=== PATIENT | female | born 2005 | race African-American/Black ===

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

== ENCOUNTER 2024-11-10 10:05 | Inpatient (IN) | payer MEDICAID, SELFPAY ==
--- NOTE | 2024-11-01 17:08 | HP.PCM_ITS ---
History and Physical Date of Admission: 11/10/24 HPI: The patient is a 19 year old female presenting for pre-operative visit. She is scheduled for and tubal, for isidoro twins on 11/10/24. Procedure discussed along with risks, benefits and complications. Other alternatives discussed for management. Consent form signed? Yes. ? ? PAST MEDICAL HISTORY PAST MEDICAL HISTORYDiagnosisDate?Anemia during in third trimester (HCC)04/22/2022?Herpes simplex virus (HSV) infection??Thalassemia alpha carrier??See carrier screening July 2024 ? ? PAST SURGICAL HISTORY PAST SURGICAL HISTORYProcedureLateralityDate? SECTION HX? CURRENT MEDICATIONS Current Outpatient MedicationsMedicationSigDispenseRefill?ferrous sulfate (IRON) 325 mg (65 mg iron) tabletTake 325 mg by mouth.???cetirizine HCl (ZYRTEC ORAL)Take by mouth.???PNV no.95/ferrous fum/folic ac ( ORAL)Take by mouth.???No current facility-administered medications for this visit. ? ? ALLERGIES: Patient has no known allergies. ? PERSONAL HISTORY: SOCIAL HISTORY Social History?Tobacco Use?Smoking status:Former??Types:Cigarettes?Smokeless tobacco:NeverVaping Use?Vaping status:Never UsedSubstance Use Topics?Alcohol use:Not Currently??Comment: rarely?Drug use:Not Currently??Types:Marijuana?? Comment: quit 2021 ? FAMILY HISTORY: FAMILY HISTORY FAMILY HISTORY ProblemRelationAge of Onset?Heart AttackMother??Bipolar disorderMother??DepressionMother??AsthmaMother??No Known ProblemsFather??No Known ProblemsSister??No Known ProblemsSister??AsthmaBrother??No Known ProblemsBrother??No Known ProblemsBrother??No Known ProblemsBrother??No Known ProblemsBrother??No Known ProblemsBrother??No Known ProblemsBrother??Heart AttackMaternal Grandmother??HypertensionMaternal Grandmother??Breast CancerMaternal Grandmother??DiabetesMaternal Grandmother??No Known ProblemsMaternal Grandfather??No Known ProblemsPaternal Grandmother??Alcohol abusePaternal Grandfather??No Known ProblemsSon? ? ? REVIEW OF SYMPTOMS: GENERAL: denies fevers or chills ENDOCRINOLOGY: has not been on steroids Cardiology : denies palpitations or chest pain Respiratory: denies SOB or cough Hematology: denies history of prolonged bleeding or easy bruising or VTE Allergy: Denies history of personal or family history of allergy to anesthesia ? PHYSICAL EXAMINATION: ? VITALS: Last menstrual period 02/09/2024, currently . ? GENERAL: The patient is well nourished, well hydrated in no acute distress. , The patient is oriented to time, place, and person. NECK: Supple. No lynphadenopathy, normal thyroid, no thyromegaly. LUNGS: Clear to auscultation bilaterally. no wheezes, rhonchi or rales HEART: Regular rate and rhythm, Normal heart sounds, and No murmurs or gallops ? IMPRESSION: Estimated Date of Delivery: 11/24/24 previous c/s, desires sterilization, previous c/s ? PLAN: The risks/benefits/alternatives and personal involved for the planned c- section and tubal were reviewed with the patient. Her questions were answered to her satisfaction and she desires to proceed. Consent was signed. I reviewed with her postop instructions and expectations. ? ? I have reviewed and updated past medical and surgical history, medications and allergies Assessment & Plan Assessment/Plan (1) Dichorionic diamniotic twin gestation: QUALIFIERS: Trimester: third trimester Qualified Code(s): O30.043 - Twin , dichorionic/diamniotic, third trimester (2) Previous delivery affecting : (3) Sterilization:
[2024-11-10] VITALS (27 sets, daily range): BP systolic 112–156; BP diastolic 53–109; PULSE 57–91; RESP 12–20; TEMP 35.9–36.9; O2SAT 97–100; BMI 36.6
[2024-11-10] MEDS: Lactated Ringers 1,000 ML 999 ML IV (10:02)
[2024-11-10 10:30] LABS: Hematocrit 34.5 % (37-47); Hemoglobin 10.6 g/dL (12.0-15.0); Immature Granulocytes Count 0.030 X10^3/uL (0.0-0.0); Mean Corp Hgb Conc 30.7 g/dL (32-36); Mean Corpuscular Volume 81.9 fL (81-99); Mean Platelet Vol. 11.6 fl (6.2-12.0); NRBC Flagged by Analyzer 0 % (0-5); Platelet Count 194 K/mm3 (150-450); RBC Distribution Width CV 18.4 % (11.6-14.6); RBC Distribution Width SD 53.1 fl (35.1-43.9); Red Blood Count 4.21 M/mm3 (4.2-5.4); White Blood Count 7.9 K/mm3 (4.4-11.0)
[2024-11-10 11:20] LABS: Syphilis Antibodies Nonreactive (Nonreactive)
[2024-11-10] MEDS: Lactated Ringers 1,000 ML 150 ML IV (11:33)
[2024-11-10] MEDS: Cefazolin 2 GM in 0.9% Normal Saline (100mL Bag) 100 ML IV (12:28)
[2024-11-10 12:36] LABS: Barbiturate Urine NEGATIVE (< 200 ng/mL); Benzodiazepine Urine NEGATIVE (< 200 ng/mL); PCP Urine NEGATIVE (< 25 ng/mL); THC Urine NEGATIVE (< 50 ng/mL)
[2024-11-10] MEDS: TRANEXAMIC ACID 1,000 MG in 0.9% Normal Saline (100mL Bag) 100 ML 440 MG IV (12:37)
--- NOTE | 2024-11-10 13:30 | EX.PCM.OBRPT ---
Assessment & Plan (1) Sterilization: (2) Previous delivery affecting : (3) Dichorionic diamniotic twin gestation: QUALIFIERS: Trimester: third trimester Qualified Code(s): O30.043 - Twin , dichorionic/diamniotic, third trimester (4) Delivery by section: (5) 38 weeks gestation of : Maternal Data Information Final SHASHI: 11/24/24 Gestational age: 38 0/7 Operative Report (OB) Details Procedure Type: low transverse (with bilateral salpingectomy) Date of Procedure: 11/10/24 Procedure Start Time: 12:37 Procedure Stop Time: 13:24 Time of Delivery: 12:43 Pre-Operative Diagnosis: Repeat Elective and Desires elective sterilization Post-Operative Diagnosis: Same as Pre-operative diagnosis Classification: Scheduled Type of Anesthesia: Spinal Special Medications: duramorph Antibiotic Given: Ancef 2 grams IV x1 Drain: Clayton to straight drain Estimated Blood Loss: 800 Fluids Replaced: 1600 Findings Description of surgery: The patient was taken to the operating room. She was prepped and draped in the dorsal supine position with a leftward tilt. A Pfannenstiel skin incision was made approximately 2 cm above the symphysis pubis and carried through to underlying layer fascia with the scalpel. The fascia was incised incised in the midline and extended laterally with the Barbosa scissors. The fascia was dissected off the rectus muscles with blunt and sharp dissection. The rectus muscles were in the midline and the peritoneum was entered bluntly. The peritoneal incision was stretched and the bladder blade was placed. The uterine incision was made in a low transverse fashion with the scalpel and extended superiorly and inferiorly with blunt dissection. The amniotic membranes were ruptured bluntly and clear amniotic fluid returned. The infant's head was brought to the incision in the flexed position and would not engage easily and baby B's membranes Bulging through the incision. The vacuum was placed on the flexion point and vacuum created 550 mmHg. I pulled with 1 pull and no pop offs with fundal pressure and the head delivered easily. The vacuum was removed and the remainder the infant delivered with gentle traction only in less than 15 seconds.. The mouth and nares were bulb suctioned. The cord was clamped and cut as the was stimulated. Cord clamping was delayed approximately 30 seconds.. The was handed off to the waiting nursing staff. Baby breathing it was brought to the incision and the amniotic membranes were ruptured and the head was brought to the incision it would not flex and was unable to be easily delivered with fundal pressure only the vacuum was then placed in the vacuum created 550 mmHg a pulled with 2 pulls and 1 pop-off and gentle fundal pressure and the delivered on the second pool the vacuum was removed without a second pop-off and the remainder the infant was delivered with very gentle traction and less than 15 seconds without difficulty. The infant was vigorous and stimulated and mouth and nares were bulb suctioned the cord was then clamped and cut cord clamping was delayed approximately 30 seconds and the was handed off to the waiting nursing staff. The placenta was delivered with fundal massage and gentle traction in the standard fashion. The uterus was exteriorized and cleared of all clots and debris. The cervix was dilated with a ring forcep. The uterine incision was closed with #1 Vicryl in a running locked fashion. A second layer of the same suture was used in an imbricating fashion to obtain hemostasis. The incision was examined and was found to be hemostatic. Hemoblast was placed over the incision The uterus was placed back into the peritoneal cavity and hemostasis was again confirmed. The left fallopian tube was identified and followed out to the fimbriated end. The LigaSure device was used to clamp seal and transect the antimesenteric portion of the tube to the cornual insertion which was clamped transected and ligated with the LigaSure device. Hemostasis was noted. The same procedure was performed on the contralateral side and the tubes were handed off for pathology. The rectus muscles were examined and any bleeding was Bovie cauterized. The parietal peritoneum and rectus muscles were closed en bloc with an 0 Vicryl running suture. Hemoblast was placed over each layer. The rectus fascia was examined and any bleeding was Bovie cauterized and the rectus fascia was closed with 1 Vicryl suture in a running standard fashion. The subcutaneous tissue was examining and any bleeding was Bovie cauterized. The subcutaneous tissue was reapproximated with 3-0 Vicryl suture. The skin was closed in a subcuticular fashion. I performed the entire procedure with assistance. No qualified residents were available for assisting. All sponge, lap, and needle counts were correct. The patient was taken to her room for recovery in a stable condition. Surgical findings: vigorous female and male , normal tubes and ovaries Presentation: Vertex Amniotic Membrane Rupture Type: Artificial Amniotic Fluid Description: Clear Placental Delivery Description: Manual Removal Placenta Disposition: Sent to Pathology Specimen collected: Yes Description of specimen(s) removed: placenta and bilateral fallopian tubes Cord Vessel Description: 3 Vessels Cord Entanglement: None Infant A gender: Female (5 lb 10 oz) (1 minute): 8 (5 minute): 9 Delayed Cord Clamping: Yes Station Engineer dice spotter: Yes Plow Mechanic: Edda Andujar CNM Tasks completed by rn first assist: Retracting Additional wet process miller head assistant?: Yes Additional Operating Table Assembler #2: Jonathan Reyna MS4 Tasks completed by wet process miller head assistant #2: Closing and Retracting Additional wet process miller head assistant?: No Complications Complications: No Baby B Information Amniotic Membrane Rupture Type: Artificial Presentation: Vertex Operative Information Mode of Delivery: Cord Vessel Description: 3 Vessels Cord Entanglement: None B gender: Male (6lb 2 oz) (1 minute): 8 (5 minute): 9 Delayed Cord Clamping: Yes
[2024-11-10] MEDS: Oxytocin 15 Units/NS 250ml 15 UNITS/250 ML IV.SOLN 83 UNITS IV (13:40)
[2024-11-10] MEDS: Ketorolac 30 MG/ML Syringe IV ×2 (14:29→21:05)
--- NOTE | 2024-11-10 14:57 | PLAC_PTH ---
PATIENT: NUNO MELVIN LOC: WP U#:[id number] AGE/SX: 19/F ROOM: WP005 RE11/10/[address]: Dr. Janis Myrick MD : 2005 BED: 1 DIS: 11/12/2024 SPEC #: [id number] RECD: 11/10/24 15:39 STATUS: BRYAN REQ #: [id number] PAULO: 11/10/24 14:[address]: Janis Myrick DEPT: SURGICAL PATHOLOGY RECD BY: Rock Turcios ENTERED: 11/11/24 09:51 SP TYPE: PLACENTA OTHR DR: No Primary Care Phys Tissues: A - Placenta, NOS B - Fallopian tube Procedures: Surgery Specimen Level II Surgery Specimen Level V HEADER OPERATION: Repeat ceaseran section PRE-OP DIAGNOSIS: Twins TISSUE SUBMITTED: A- Placenta, B- Bilateral fallopian tubes MICROSCOPIC DIAGNOSIS A. Placenta, twins, gestation: 38 weeks, section: Dichorionic diamniotic twin placenta * Twin #1: clamped Mature third trimester placenta (365.3 grams) Three vessel umbilical cord membranes without active inflammation * Twin #2, no clamp Mature third trimester placenta (356.8 grams) with focal subchorionic fibrin <15% Three vessel umbilical cord, marginally inserted membranes without active inflammation B. Bilateral fallopian tubes, sterilization tubal ligation: * Benign fallopian tubes with no pathologic change MICROSCOPIC DESCRIPTION Slides are reviewed. GROSS DESCRIPTION A. Received in formalin labeled with the patient's name and date of is a diamniotic, dichorionic twin placenta with two separate discs and central, dividing membranes. There is a single, undesignated umbilical clamp. Clamped Placenta: Ovoid disc. Weighs 365.3 g and measures 18.8 x 12.3 x 2.9 cm. The membranes are belle-pink and translucent with focal opacity, inserting marginally. The attached, hypercoiled, trivascular and clamped umbilical cord measures 27.8 cm in length by 0.9-1.5 cm in diameter and inserts eccentrically, 4.4 cm from the disc edge. The surface is blue-ivan with arborizing vasculature and patchy subchorionic fibrin (<10%). The maternal surface is dark red-brown with a focally torn and frayed appearance and loosely adherent blood clot; the maternal surface appears near complete. Sectioning reveals dark red-maroon spongy parenchyma devoid of identifiable fibrin or hemorrhages. Sections are submitted as follows: A1: Membrane rollA2: Umbilical cordA3-A4: Placenta No Clamp Placenta: Ovoid disc. Weighs 356.8 g and measures 17.1 x 12.4 x 3.8 cm. The membranes are belle-pink and translucent with focal opacity, inserting marginally. The attached, hypercoiled, trivascular umbilical cord is devoid of a clamp, measures 25.7 cm in length by 1.0-1.5 cm in diameter and inserts marginally, <0.1 cm from the disc edge. The surface is pink-blue to ivan with arborizing vasculature and patchy subchorionic fibrin (<15%). The maternal surface is dark red-brown with a focally torn and frayed appearance, loosely adherent blood clot and fibrin (<15%); the maternal surface appears near complete. Sectioning reveals dark red-maroon spongy parenchyma with patchy fibrin. Sections are submitted as follows: A5: Membrane rollA6: Umbilical cordA7-A8: Placenta A9: Dividing membranes B. Received in formalin labeled with the patient's name and date of . Designated as bilateral fallopian tubes L suture, are no suture are 2 red-purple fimbriated fallopian tubes with orientation open) suture on the left close measuring 6.2 x 0.6-0.9 cm (left) and 9.0 x 0.5-0.8 cm. A possible, <0.1 cm paratubal cyst is identified on the left fallopian tube. Criminal Records Technician sections are submitted in 2 cassettes follows: B1: Left fallopian tubeB2: Right fallopian tube [place] 11/11/2024 CPT:14023,61215h1
--- NOTE | 2024-11-10 14:57 | PLAC_PTH ---
PATIENT: NUNO MELVIN LOC: WP U#:[id number] AGE/SX: 19/F ROOM: WP005 RE11/10/[address]: Dr. Janis Myrick MD : 2005 BED: 1 DIS: 11/12/2024 SPEC #: [id number] RECD: 11/10/24 15:39 STATUS: BRYAN REQ #: [id number] PAULO: 11/10/24 14:[address]: Janis Myrick DEPT: SURGICAL PATHOLOGY RECD BY: Rock Turcios ENTERED: 11/11/24 09:51 SP TYPE: PLACENTA OTHR DR: No Primary Care Phys Tissues: A - Placenta, NOS B - Fallopian tube Procedures: Surgery Specimen Level II Surgery Specimen Level V HEADER OPERATION: Repeat ceaseran section PRE-OP DIAGNOSIS: Twins TISSUE SUBMITTED: A- Placenta, B- Bilateral fallopian tubes MICROSCOPIC DIAGNOSIS A. Placenta, twins, gestation: 38 weeks, section: Dichorionic diamniotic twin placenta * Twin #1: clamped Mature third trimester placenta (365.3 grams) Three vessel umbilical cord membranes without active inflammation * Twin #2, no clamp Mature third trimester placenta (356.8 grams) with focal subchorionic fibrin <15% Three vessel umbilical cord, marginally inserted membranes without active inflammation B. Bilateral fallopian tubes, sterilization tubal ligation: * Benign fallopian tubes with no pathologic change MICROSCOPIC DESCRIPTION Slides are reviewed. GROSS DESCRIPTION A. Received in formalin labeled with the patient's name and date of is a diamniotic, dichorionic twin placenta with two separate discs and central, dividing membranes. There is a single, undesignated umbilical clamp. Clamped Placenta: Ovoid disc. Weighs 365.3 g and measures 18.8 x 12.3 x 2.9 cm. The membranes are belle-pink and translucent with focal opacity, inserting marginally. The attached, hypercoiled, trivascular and clamped umbilical cord measures 27.8 cm in length by 0.9-1.5 cm in diameter and inserts eccentrically, 4.4 cm from the disc edge. The surface is blue-ivan with arborizing vasculature and patchy subchorionic fibrin (<10%). The maternal surface is dark red-brown with a focally torn and frayed appearance and loosely adherent blood clot; the maternal surface appears near complete. Sectioning reveals dark red-maroon spongy parenchyma devoid of identifiable fibrin or hemorrhages. Sections are submitted as follows: A1: Membrane rollA2: Umbilical cordA3-A4: Placenta No Clamp Placenta: Ovoid disc. Weighs 356.8 g and measures 17.1 x 12.4 x 3.8 cm. The membranes are belle-pink and translucent with focal opacity, inserting marginally. The attached, hypercoiled, trivascular umbilical cord is devoid of a clamp, measures 25.7 cm in length by 1.0-1.5 cm in diameter and inserts marginally, <0.1 cm from the disc edge. The surface is pink-blue to ivan with arborizing vasculature and patchy subchorionic fibrin (<15%). The maternal surface is dark red-brown with a focally torn and frayed appearance, loosely adherent blood clot and fibrin (<15%); the maternal surface appears near complete. Sectioning reveals dark red-maroon spongy parenchyma with patchy fibrin. Sections are submitted as follows: A5: Membrane rollA6: Umbilical cordA7-A8: Placenta A9: Dividing membranes B. Received in formalin labeled with the patient's name and date of . Designated as bilateral fallopian tubes L suture, are no suture are 2 red-purple fimbriated fallopian tubes with orientation open) suture on the left close measuring 6.2 x 0.6-0.9 cm (left) and 9.0 x 0.5-0.8 cm. A possible, <0.1 cm paratubal cyst is identified on the left fallopian tube. Tick Inspector sections are submitted in 2 cassettes follows: B1: Left fallopian tubeB2: Right fallopian tube [place] 11/11/2024 CPT:58217,[id number]
[2024-11-10 15:39] LABS: Pathology Specimen OB SEE PATHOLOGY REPORT
[2024-11-10] MEDS: Lactated Ringers 1,000 ML 100 ML IV (16:39)
[2024-11-11 01:01] VITALS: RESP 16; O2SAT 99
[2024-11-11 03:23] VITALS: BP 111/59; PULSE 64; RESP 16; TEMP 36.5; O2SAT 97
[2024-11-11] MEDS: Ketorolac 30 MG/ML Syringe IV ×2 (03:25→09:42)
[2024-11-11 08:00] VITALS: BP 120/67; PULSE 77; RESP 15; TEMP 36.5; O2SAT 97
[2024-11-11 08:26] LABS: Hematocrit 31.6 % (37-47); Hemoglobin 9.8 g/dL (12.0-15.0); Mean Corp Hgb Conc 31.0 g/dL (32-36); Mean Corpuscular Volume 82.5 fL (81-99); Mean Platelet Vol. 11.3 fl (6.2-12.0); Platelet Count 172 K/mm3 (150-450); RBC Distribution Width CV 18.5 % (11.6-14.6); RBC Distribution Width SD 53.7 fl (35.1-43.9); Red Blood Count 3.83 M/mm3 (4.2-5.4); White Blood Count 12.0 K/mm3 (4.4-11.0)
--- NOTE | 2024-11-11 08:54 | PCM.PN.OB ---
Subjective Subjective Doing well. Ambulating and voiding without difficulty. Mild lochia. Breast feeding. Objective Data Objective Data Vital Signs: Vital Signs Temp Pulse Resp BP Pulse Ox O2 Del Method 97.7 F L 77 15 120/67 97 Room Air 11/11/24 08:00 11/11/24 08:00 11/11/24 08:00 11/11/24 08:00 11/11/24 08:00 11/11/24 08:00 Oxygen Delivery Method Room Air Weight: 99.79 kg Body Mass Index (BMI) 36.6 Intake & Output: Intake and Output for Last 24 Hours 11/09/24 11/10/24 11/11/24 23:59 23:59 23:59 Intake Total 2191.79 / 2191.79 Output Total 1999 1700 / 1700 Balance 191.79 / 191.79 -1700 / -1700 Lab / Micro Data 11/11/24 08:15 Labs: Laboratory Results - last 24 hr 11/10/24 10:02: WBC 7.9, RBC 4.21, Hgb 10.6 L, Hct 34.5 L, MCV 81.9, MCH 25.2 L, MCHC 30.7 L, RDW Std Deviation 53.1 H, RDW Coeff of Michael 18.4 H, Plt Count 194, MPV 11.6, Immature Gran % (Auto) 0.400, Neut % (Auto) 60.0, Lymph % (Auto) 30.4, [place] % (Auto) 7.8, Eos % (Auto) 1.1, Baso % (Auto) 0.3, Absolute Neuts (auto) 4.8, Absolute Lymphs (auto) 2.41, Nucleated RBC % 0, Syphilis Total Ab Nonreactive, Blood Type A POSITIVE, Antibody Screen NEGATIVE 11/10/24 10:20: Urine Opiates Screen NEGATIVE, U Buprenorphine Qual NEGATIVE, Ur Oxycodone Screen NEGATIVE, Urine Methadone Screen NEGATIVE, Urine Fentanyl Screen NEGATIVE, Ur Barbiturates Screen NEGATIVE, Ur Phencyclidine Scrn NEGATIVE, Ur Amphetamines Screen NEGATIVE, U Benzodiazepines Scrn NEGATIVE, Urine Cocaine Screen NEGATIVE, U Cannabinoids Screen NEGATIVE, Ur Drug Screen Comment 11/11/24 08:15: WBC 12.0 H, RBC 3.83 L, Hgb 9.8 L, Hct 31.6 L, MCV 82.5, MCH 25.6 L, MCHC 31.0 L, RDW Std Deviation 53.7 H, RDW Coeff of Michael 18.5 H, Plt Count 172, MPV 11.3 ROS Constitutional Constitutional: Denies headache(s) Cardiovascular Cardiovascular: Denies chest pain or dyspnea Gastrointestinal Gastrointestinal: Denies nausea or vomiting Genitourinary Genitourinary: Denies dysuria Physical Exam Const alert, oriented x3 and no apparent distress General Appearance: cooperative and comfortable Eyes PERRL and EOMs intact bilaterally Resp normal respiratory effort GI soft to palpation and non-tender Uterus Palpation: uterus fundus firm ( below umbilicus) Extremity normal to inspection and full ROM Neuro oriented x3 and CN's II-XII intact bilaterally Psych mental status grossly normal Assessment & Plan (1) Sterilization: (2) Previous delivery affecting : (3) Dichorionic diamniotic twin gestation: QUALIFIERS: Trimester: third trimester Qualified Code(s): O30.043 - Twin , dichorionic/diamniotic, third trimester (4) Delivery by section: PLAN: Plan Routine care
[2024-11-11] MEDS: 0.9% Saline Lock 10 ML Syringe IV (09:42)
[2024-11-11] MEDS: Senna/Docusate Sodium 1 Tablet PO (09:43)
[2024-11-11 15:00] VITALS: BP 123/78; PULSE 80; RESP 16; TEMP 36.6; O2SAT 98
[2024-11-11 20:35] VITALS: BP 127/77; PULSE 92; RESP 16; TEMP 36.6; O2SAT 97
[2024-11-12 01:18] VITALS: BP 126/69; PULSE 86; RESP 14; TEMP 36.6; O2SAT 97
--- NOTE | 2024-11-12 06:28 | PCM.PN.OB ---
Subjective Subjective Doing well. Ambulating and voiding without difficulty. Mild lochia. Breast feeding. Objective Data Objective Data Vital Signs: Vital Signs Temp Pulse Resp BP Pulse Ox O2 Del Method 97.9 F 86 14 126/69 H 97 Room Air 11/12/24 01:18 11/12/24 01:18 11/12/24 01:18 11/12/24 01:18 11/12/24 01:18 11/12/24 01:18 Oxygen Delivery Method Room Air Weight: 99.79 kg Body Mass Index (BMI) 36.6 Intake & Output: Intake and Output for Last 24 Hours 11/10/24 11/11/24 11/12/24 23:59 23:59 23:59 Intake Total 2191.79 / 2191.79 Output Total 1999 1700 / 1700 Balance 191.79 / 191.79 -1700 / -1700 Lab / Micro Data 11/11/24 08:15 Labs: Laboratory Results - last 24 hr 11/11/24 08:15: WBC 12.0 H, RBC 3.83 L, Hgb 9.8 L, Hct 31.6 L, MCV 82.5, MCH 25.6 L, MCHC 31.0 L, RDW Std Deviation 53.7 H, RDW Coeff of Michael 18.5 H, Plt Count 172, MPV 11.3 ROS Constitutional Constitutional: Denies headache(s) Cardiovascular Cardiovascular: Denies chest pain or dyspnea Gastrointestinal Gastrointestinal: Denies nausea or vomiting Genitourinary Genitourinary: Denies dysuria Physical Exam Const alert, oriented x3 and no apparent distress General Appearance: cooperative and comfortable Eyes PERRL and EOMs intact bilaterally Resp normal respiratory effort GI soft to palpation and non-tender GI Narrative: soft, moderate distention, fundus firm, appropriately tender. Abdominal bandage clean dry and intact Uterus Palpation: uterus fundus firm ( below umbilicus) Extremity normal to inspection and full ROM Neuro oriented x3 and CN's II-XII intact bilaterally Psych mental status grossly normal Assessment & Plan (1) Sterilization: (2) Previous delivery affecting : (3) Dichorionic diamniotic twin gestation: QUALIFIERS: Trimester: third trimester Qualified Code(s): O30.043 - Twin , dichorionic/diamniotic, third trimester (4) S/P : PLAN: Plan Discharge home
--- NOTE | 2024-11-12 06:29 | PCM.DC.SUM ---
Providers Date of Admission: 11/10/24 Date of Discharge: 11/12/24 Primary Care Physician: Nathalia Primary Care Phys Reason For Visit: REPEAT Diagnosis Discharge Diagnosis (1) Sterilization: Status: Acute Code(s): Z30.2 - Encounter for sterilization (2) Previous delivery affecting : Status: Acute Code(s): O34.219 - Maternal care for unspecified type scar from previous delivery (3) Dichorionic diamniotic twin gestation: Status: Acute Code(s): O30.049 - Twin , dichorionic/diamniotic, unspecified trimester Qualifiers: Trimester: third trimester Qualified Code(s): O30.043 - Twin , dichorionic/diamniotic, third trimester (4) S/P : Status: Acute Code(s): Z98.891 - History of uterine scar from previous surgery Plan Discharge home Medications at Discharge Home Medications prenat.vits,barb,vru-bnca-xpvwc 1 tab PO DAILY genital herpes 07/04/22 acetaminophen 500 mg tablet 1,000 mg (2 x 500 mg) PO Q6H #30 tabs 11/12/24 ibuprofen 600 mg tablet 600 mg PO Q6H #30 tabs 11/12/24 Hospital Course Operations section Procedures None Summary of Care Provided Minutes Spent on Discharge: 20 Hospital Course: scheduled repeat . Breast feeding. Physical Exam Const alert General Appearance: cooperative GI GI Narrative: soft, moderate distention, fundus firm, appropriately tender. Abdominal bandage clean dry and intact Weight / BMI Weight Weight: 99.79 kg Body Mass Index (BMI) 36.6 ABG / Lab / Microbiology Data 11/11/24 08:15 Laboratory: Laboratory Results - last 24 hr 11/11/24 08:15: WBC 12.0 H, RBC 3.83 L, Hgb 9.8 L, Hct 31.6 L, MCV 82.5, MCH 25.6 L, MCHC 31.0 L, RDW Std Deviation 53.7 H, RDW Coeff of Michael 18.5 H, Plt Count 172, MPV 11.3 D/C Instructions Discharge Diet: No restrictions May resume sexual activity in: 4-6 weeks Lifting Restrictions: 20 pounds Additional Activity Instructions: Nothing in the vagina for 4-6 weeks. You may return to work/school in 6 weeks. Call your doctor if your incision/area has: Continuous Slow Oozing, Sudden Increased Bleeding, Increased Pain/ Swelling, Increased Redness and Foul Smelling Discharge Call your doctor if you observe: Fever of 101 or Higher and Using more than 1 pad per hour (for 2 hours) Suture Line Care: Avoid Pulling/Pushing and Avoid Pinching/Bending Cleanse incision/area with: Keep Dressing Clean & Dry DC O2, CPAP, BIPAP Needs Home O2 Discharge instructions: No Please Follow Up With: Janis Myrick MD When: Call to make an appointment for an incision check in 1-2 [phone]. You will need a post check in 6 weeks. Meaningful Use Info Meaningful Use Meaningful Use Diagnoses (Choose all that apply): None applicable Ischemic Stroke Statin Dosing Therapy Reference: STATIN DOSE THERAPY REFERENCE: * Patients > 75 years receive moderate or high dose statin therapy. * Patients 75 years or YOUNGER should receive HIGH intensity statin dose unless contraindicated. You will be required to document reason for non-treatment if statin daily dose does not meet guidelines. HIGH DOSE STATIN THERAPY DAILY Atorvastatin > than or = to 40 mg Rosuvastatin > than or = to 20 mg Amlodipine + Atorvastatin > than or = to 2.5/40 mg Ezetimibe + Simvastatin 10/80 mg Simvastatin 80mg Discharge Plan Admission Admit Date/Time: 11/10/24 10:05 Primary Reason for Your Visit: repeat Attending Provider: Janis Myrick Primary Care Provider: Rya Physician,Nathalia Primary Discharge Orders/Prescriptions Prescriptions: New acetaminophen 500 mg Tablet 1,000 mg PO Q6H Qty: 30 0RF ibuprofen 600 mg Tablet 600 mg PO Q6H Qty: 30 0RF Continued prenat.vits,barb,upw-zula-gebzp Tablet 1 tab PO DAILY Referrals / Follow Up: Care Physician,No Primary [Primary Care Provider] - Disposition Disposition (needs filled in before D/C Order can be placed): Home, Self Care
[2024-11-12 10:35] VITALS: BP 125/82; PULSE 76; RESP 16; TEMP 36.6; O2SAT 97
[2024-11-12] MEDS: Senna/Docusate Sodium 1 Tablet PO (11:26)
--- NOTE | 2024-11-18 16:23 | NURSING ---
Follow up phone call made, phone number disconnected
--- NOTE | 2024-11-18 16:23 | NURSING ---
Follow up phone call made, phone number disconnected
--- NOTE | 2024-11-29 10:58 | CASEMGMT ---
Social Work Assessment Labor and Delivery Unit Patient Address: [address] [place] [address] [place] [address] Phone number: [phone] Date of Referral: 11/10/24 Time of Referral:? 1038 Referred By: Dr. Myrick Date of Intervention: ??11/11/24 Time of Intervention:? 1034 Reason for Referral:? parent history of etoh/ drug use Sw completed chart review and acknowledges social work consult. Sw presented to bedside and introduced self to mother of baby (LATOYA- Chastity). Father of baby (FODirk- Yogi) was asleep on couch throughout completion of assessment. History obtained from: medical records, MOB Household composition: MOB states that currently residing in the family home is LATOYA, ESPERANZA, LATOYA's older son: (2), and twins to be included in residence when ready for discharge. MOB denies any problems or concerns with housing, reporting it is safe and secure. MOB states that ESPERANZA has two children of his own: Journey (7) and Marshal (5) and they stay with them on the weekends. Patient's parent/guardian status:?MOB states that she and ESPERANZA have been together for 10 months after meeting each other through LATOYA's sister. MOB denies any problems or concerns with domestic violence or intimate partner violence. [place] twins are the first two children for parents together. Medical History: LATOYA is 19 year old Bi-racial female who is 3, para 1- now 3 following labor and delivery of twins. LATOYA received routine care during care during with [facility]. LATOYA presented to hospital and delivered twins via repeat scheduled on 11/10/24 at 38 weeks gestation. Baby A: Anni was born weighing 5lb 10oz and has apgars of 8 and 9 at one and five minutes of life, respectfully. Baby B: Yogi, was born weighing 6lb 2oz with apgars of 8 and 9 at one and five minutes of life, respectfully. MOB states that she is breast feeding and baby's will be followed by Dr. Guevara for pediatrics. ? Educational Status:?MOB stats that she attended some college and obtained her certification in medical assisting, MOB states that she thinks FODirk graduated from high school. MOB denies any problems or concerns with reading, learning or comprehension. 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 Infant Supplies:?? LATOYA states that she has obtained all necessary baby supplies, including: car seat, safe sleep space, clothes, diapers and wipes. Childcare/Caregiver(s): LATOYA states that she will be the primary caregiver to baby along with ESPERANZA when he is not working. ? Transportation:?? Both parents have their drivers license and reliable means of transportation, no barriers to transportation at this time. Programs/Agencies Involved: ?LATOYA is connected to several community resources that assist her financially: Title 20, SNAP, insurance and WIC. ?? Children Services/Legal Issues:??LATOYA denies prior involvement/ history with children services. No issues or concerns warranting referral to be made at this time. ? Behavioral Health Issues: ??Mental Health History:??MOB denies mental health history for herself, MOB states that she is not sure if ESPERANZA has a mental health history or not. ? Substance Use History:?MOB denies substance use history prior to and during . ? Family History:??MOB states that her mother has been diagnosed with BiPolar, ADD and PTSD. MOB states that her mother does have history of substance use and she is not close to her mom. Douglas discussed importance of understanding her genetic history and to always use healthy coping skills opposed to seeking comfort from drugs or alcohol, which MOB expressed understanding. ??? Drug Screens: ??No drug screens observed while completing chart review. Family/Social Stressors:? LATOYA denies any problems or concerns at this time. MOB states that when she found out that she was with twins after only knowing FOB for a very brief period of time, she was initially shocked and overwhelmed. MOB states that she and ESPERANZA are still navigating how to incorporate their two families together. Support Systems: MOB states that ESPERANZA and her sister are her two biggest supports. Depression/Shaken Baby/Safe Sleeping:? Sw educated LATYOA on signs and symptoms of baby blues and depression. MOB states that she did not experience any blues or symptoms after her son was born two years ago. MOB states that if she were to struggle during this period, her sister would be her biggest support. Sw encouraged MOB to utilize healthy and safe coping mechanisms. Sw educated MOB on shaken baby prevention and ABCs of safe sleep, MOB expressed understanding. ASSESSMENT:? MOB and her twins admitted following labor and delivery. MOB was observed sitting on bed and feeding baby while she was also welcoming of meeting with sw. MOB states that she and FOB have not been together very long, and their was a surprise, and the fact that they had twins was an even bigger surprise. MOB states that she has help and support found from FOB and her sister. MOB denies experiencing any baby blues or depression/ anxiety after the delviery of her first baby. At this time, MOB states that mentally she feels good and is happy that babies are here and are healthy. MOB was talkative and in happy mood. MOB answered questions and engaging in conversation, although did not elaborate on answers. PLAN:? No other services requested or indicated. MOB and baby to be discharged when medically ready. Parents were provided literature regarding: signs and symptoms of baby blues and mood and anxiety disorders, Help Me Grow, shaken baby prevention, ABCs of safe sleep and a list of county resources that are available for them should any needs present themselves. Rafael Aguilar, REPAIR WELDER, INSURANCE CLAIMS SPECIALIST
--- NOTE | 2024-11-29 10:58 | CASEMGMT ---
Social Work Assessment Labor and Delivery Unit Patient Address: [address] [place] [address] [place] [address] Phone number: [phone] Date of Referral: 11/10/24 Time of Referral:? 1038 Referred By: Dr. Myrick Date of Intervention: ??11/11/24 Time of Intervention:? 1034 Reason for Referral:? parent history of etoh/ drug use Sw completed chart review and acknowledges social work consult. Sw presented to bedside and introduced self to mother of baby (LATOYA- Chastity). Father of baby (FODirk- Yogi) was asleep on couch throughout completion of assessment. History obtained from: medical records, MOB Household composition: MOB states that currently residing in the family home is LATOYA, ESPERANZA, LATOYA's older son: (2), and twins to be included in residence when ready for discharge. MOB denies any problems or concerns with housing, reporting it is safe and secure. MOB states that ESPERANZA has two children of his own: Journey (7) and Marshal (5) and they stay with them on the weekends. Patient's parent/guardian status:?MOB states that she and ESPERANZA have been together for 10 months after meeting each other through LATOYA's sister. MOB denies any problems or concerns with domestic violence or intimate partner violence. [place] twins are the first two children for parents together. Medical History: LATOYA is 19 year old Bi-racial female who is 3, para 1- now 3 following labor and delivery of twins. LATOYA received routine care during care during with [facility]. LATOYA presented to hospital and delivered twins via repeat scheduled on 11/10/24 at 38 weeks gestation. Baby A: Anni was born weighing 5lb 10oz and has apgars of 8 and 9 at one and five minutes of life, respectfully. Baby B: Yogi, was born weighing 6lb 2oz with apgars of 8 and 9 at one and five minutes of life, respectfully. MOB states that she is breast feeding and baby's will be followed by Dr. Guevara for pediatrics. ? Educational Status:?MOB stats that she attended some college and obtained her certification in medical assisting, MOB states that she thinks FODirk graduated from high school. MOB denies any problems or concerns with reading, learning or comprehension. 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 Infant Supplies:?? LATOYA states that she has obtained all necessary baby supplies, including: car seat, safe sleep space, clothes, diapers and wipes. Childcare/Caregiver(s): LATOYA states that she will be the primary caregiver to baby along with ESPERANZA when he is not working. ? Transportation:?? Both parents have their drivers license and reliable means of transportation, no barriers to transportation at this time. Programs/Agencies Involved: ?LATOYA is connected to several community resources that assist her financially: Title 20, SNAP, insurance and WIC. ?? Children Services/Legal Issues:??LATOYA denies prior involvement/ history with children services. No issues or concerns warranting referral to be made at this time. ? Behavioral Health Issues: ??Mental Health History:??MOB denies mental health history for herself, MOB states that she is not sure if ESPERANZA has a mental health history or not. ? Substance Use History:?MOB denies substance use history prior to and during . ? Family History:??MOB states that her mother has been diagnosed with BiPolar, ADD and PTSD. MOB states that her mother does have history of substance use and she is not close to her mom. Douglas discussed importance of understanding her genetic history and to always use healthy coping skills opposed to seeking comfort from drugs or alcohol, which MOB expressed understanding. ??? Drug Screens: ??No drug screens observed while completing chart review. Family/Social Stressors:? LATOYA denies any problems or concerns at this time. MOB states that when she found out that she was with twins after only knowing FOB for a very brief period of time, she was initially shocked and overwhelmed. MOB states that she and ESPERANZA are still navigating how to incorporate their two families together. Support Systems: MOB states that ESPERANZA and her sister are her two biggest supports. Depression/Shaken Baby/Safe Sleeping:? Sw educated LATOYA on signs and symptoms of baby blues and depression. MOB states that she did not experience any blues or symptoms after her son was born two years ago. MOB states that if she were to struggle during this period, her sister would be her biggest support. Sw encouraged MOB to utilize healthy and safe coping mechanisms. Sw educated MOB on shaken baby prevention and ABCs of safe sleep, MOB expressed understanding. ASSESSMENT:? MOB and her twins admitted following labor and delivery. MOB was observed sitting on bed and feeding baby while she was also welcoming of meeting with sw. MOB states that she and FOB have not been together very long, and their was a surprise, and the fact that they had twins was an even bigger surprise. MOB states that she has help and support found from FOB and her sister. MOB denies experiencing any baby blues or depression/ anxiety after the delviery of her first baby. At this time, MOB states that mentally she feels good and is happy that babies are here and are healthy. MOB was talkative and in happy mood. MOB answered questions and engaging in conversation, although did not elaborate on answers. PLAN:? No other services requested or indicated. MOB and baby to be discharged when medically ready. Parents were provided literature regarding: signs and symptoms of baby blues and mood and anxiety disorders, Help Me Grow, shaken baby prevention, ABCs of safe sleep and a list of county resources that are available for them should any needs present themselves. Rafael Aguilar, PARTY DIRECTOR, PALS NURSE
== END 2024-11-12 14:00 | disposition home or self-care (01) | DRG 539 ==
PROVIDERS: Admitting Provider Obstetrics & Gynecology; Referring Provider Obstetrics & Gynecology; Visit Provider Obstetrics & Gynecology
PROC: 10D00Z1 Extraction of Products of Conception, Low, Open Approach (ICD-10-PCS; CPT 59514; principal; 2024-11-10 11:45)
DX: O30.043 Twin pregnancy, dichorionic/diamniotic, third trimester (principal); Z37.2 Twins, both liveborn; O34.219 Maternal care for unspecified type scar from previous cesarean delivery; Z30.2 Encounter for sterilization; Z3A.38 38 weeks gestation of pregnancy; Z87.891 Personal history of nicotine dependence
CPT/HCPCS: 59050; 80307; 85025; 85027; 86780; 86850; 86900; 86901; 88302; 88307; 99221; A4216; G0378; J2405